=== PATIENT | male | born 1940 | race Caucasian/White ===

== ENCOUNTER 2018-05-17 14:22 | Day surgery (SDC) | payer OTHER, MEDICARE ==
[~2018-05-17 14:22] MED LIST: CEFAZOLIN 1 GM INJ; DESFLURANE 15 MIN
[2018-05-17] MEDS ORDERED: PROPOFOL 20 ML (18:04)
[2018-05-17] MEDS ORDERED: ROCURONIUM 50 MG INJ (18:04)
[2018-05-17] MEDS ORDERED: FENTAnyl 50 MCG/ML VIAL (18:05)
[2018-05-17] MEDS ORDERED: PHENYLephrine (100 MCG/ML) 5ML SYG (18:19)
== END 2018-05-18 09:07 | disposition home or self-care (01) ==
LOC: GIL 05-18 09:07
DX: K94.23 Gastrostomy malfunction (principal); Y83.3 Surgical operation with formation of external stoma as the cause of abnormal reaction of the patient, or of later complication, without mention of misadventure at the time of the procedure; R13.10 Dysphagia, unspecified; K21.0 Gastro-esophageal reflux disease with esophagitis; I25.10 Atherosclerotic heart disease of native coronary artery without angina pectoris; I48.91 Unspecified atrial fibrillation; E78.5 Hyperlipidemia, unspecified; I10 Essential (primary) hypertension; E11.9 Type 2 diabetes mellitus without complications; J96.90 Respiratory failure, unspecified, unspecified whether with hypoxia or hypercapnia
CPT/HCPCS: 49446; 94002